=== PATIENT | male | born 1955 | race Caucasian/White ===

== ENCOUNTER → 2017-09-07 | Outpatient (CLI) | payer OTHER ==
--- NOTE | 2017-09-07 16:23 | RAD ---
Indication: Right knee pain and swelling. No known injury. Technique: 3 views of the right knee are submitted for review. No comparison is available. Findings: There is no fracture or dislocation. There is no joint effusion or displacement of fat pads. There is no compartmental narrowing. There is mild medial compartment and minimal lateral and patellofemoral compartment spurring. Impression: Mild osteoarthritis which is greatest in the medial compartment.
== END | disposition home or self-care (01) ==
LOC: RAD 15:33
PROVIDERS: ATTEND Internal Medicine
DX: M25.561 Pain in right knee (principal)
CPT/HCPCS: 73562

== ENCOUNTER → 2017-10-21 | Outpatient (CLI) | payer OTHER ==
--- NOTE | 2017-10-21 13:34 | RAD ---
AP standing knees, 10/21/2017: History: Knee pain AP standing views of both knees were obtained as requested. There is mild marginal spurring and chondrocalcinosis on the left. There is patellar deformity on the left suggesting old trauma. The right knee joint space is well-preserved. No acute fracture is identified on this limited exam.
== END | disposition home or self-care (01) ==
LOC: RAD 10:09
PROVIDERS: ATTEND Physical Medicine & Rehabilitation
DX: M17.0 Bilateral primary osteoarthritis of knee (principal); M11.262 Other chondrocalcinosis, left knee; M21.962 Unspecified acquired deformity of left lower leg
CPT/HCPCS: 73565

== ENCOUNTER → 2021-10-23 | Outpatient (CLI) | payer OTHER ==
[2021-10-23 17:11] LABS: BF CLARITY HAZY; BF COLOR RED; BF MON % 72 %; BF PMN % 28 %; BF RBC COUNT 15300 /cmm (Not Established); BF SOURCE SYNOVIAL; BF WBC COUNT 500 /cmm (Not Established)
== END ==
LOC: PMGORTHO 13:00
PROVIDERS: ATTEND Physician Assistant
DX: M11.262 Other chondrocalcinosis, left knee (principal)
CPT/HCPCS: 36415; 87071; 87075; 89050; 89060